=== PATIENT | male | born 1970 | race Caucasian/White ===

== ENCOUNTER 2019-10-15 11:47 | Emergency (ER) | payer BC ==
[2019-10-15 12:08] VITALS: BP 108/72; PULSE 70
--- NOTE | 2019-10-15 12:48 | EDM.PDOC ---
ED HPI GENERAL MEDICAL PROBLEM - General Chief Complaint: General Stated Complaint: PULLING IN ABDOMEN AREA Time Seen by Provider: 10/15/19 12:25 Source of Information: Reports: Patient, Significant Other History Limitations: Reports: No Limitations - History of Present Illness INITIAL COMMENTS - FREE TEXT/NARRATIVE: Patient presents with acute pain in right groin and right low back after lifting a heavy object about two hours ago. Immediately after the incident he developed a cold sweat. He checked oral temp at home which was 94 F but this was shortly after drinking some water. He has constipation chronically due to hydrocodone use for chronic back and neck pain. He also uses Cyclobenzaprine and Alprazolam to help relax at night. He says he sometimes has a similar pain from constipation but not as severe or acute. He was concerned that he had ruptured or obstructed a bowel with the lifting. He did pass stool and take a shower before coming to ER. Right Groin Pain Score (Numeric/FACES): 5 - Related Data Allergies Allergy/AdvReac Type Severity Reaction Status Date / Time egg Allergy Diarrhea Verified 10/15/19 12:10 No Known Drug Allergies Allergy Cannot Verified 08/20/14 21:48 Remember Home Meds: Home Meds ALPRAZolam [Alprazolam] 2 tab PO BEDTIME 10/15/19 [History] Cyclobenzaprine HCl 10 mg PO DAILY PRN 10/15/19 [History] Hydrocodone/Acetaminophen [Hydrocodon-Acetaminophn 10-325] 1 tab PO DAILY PRN [History] Levothyroxine 25 mcg PO DAILY 10/15/19 [History] Propranolol HCl 20 mg PO DAILY 10/15/19 [History] Past Medical History - Past Health History Medical/Surgical History: Denies Medical/Surgical History Other Cardiovascular History: Palpatations Social & Family History - Tobacco Use Smoking Status *Q: Current Every Day Smoker Years of Tobacco use: 35 Packs/Tins Daily: 1 Second Hand Smoke Exposure: Yes - Caffeine Use Caffeine Use: Reports: Other Other Caffeine Use: root beer x4 bottles daily - Recreational Drug Use Recreational Drug Use: No - Living Situation & Occupation Living situation: Reports: Occupation: Employed ED ROS GENERAL - Review of Systems Review Of Systems: See Below Constitutional: Reports: Chills. Denies: Fever, Malaise, Weakness HEENT: Denies: Vision Change Respiratory: Denies: Shortness of Breath, Cough Cardiovascular: Denies: Chest Pain, Lightheadedness, Syncope Endocrine: Reports: Other (Christine) GI/Abdominal: Reports: Constipation. Denies: Vomiting : Denies: Dysuria Musculoskeletal: Reports: Neck Pain (chronic only), Back Pain (see HPI). Denies : Shoulder Pain, Arm Pain, Leg Pain Skin: Denies: Cyanosis, Jaundice, Mottled, Pallor, Diaphoresis Neurological: Denies: Confusion, Dizziness, Headache, Seizure, Syncope, Trouble Speaking, Difficulty Walking Psychiatric: Reports: Anxiety. Denies: Agitation, Confusion ED EXAM, GENERAL - Physical Exam Exam: See Below Exam Limited By: No Limitations General Appearance: Alert, WD/WN, No Apparent Distress Eye Exam: Bilateral Eye: EOMI, Normal Inspection, PERRL Ears: Normal External Exam, Hearing Grossly Normal Nose: Normal Inspection, No Blood Throat/Mouth: Normal Inspection, Normal Lips, Normal Voice, No Airway Compromise Head: Atraumatic, Normocephalic Neck: Normal Inspection, Full Range of Motion Respiratory/Chest: No Respiratory Distress, Lungs Clear, Normal Breath Sounds, No Accessory Muscle Use Cardiovascular: Regular Rate, Rhythm, No Murmur GI/Abdominal: Normal Bowel Sounds, Soft, Non-Tender, No Organomegaly, No Distention, No Abnormal Bruit (Male) Exam: No Hernia, Normal Inspection. No: Penile Lesions, Rash, Scrotal Swelling, Scrotum Tenderness (L), Scrotum Tenderness (R), Suprapubic Fullness, Testicular Mass, Testicular Tenderness (L), Testicular Tenderness (R) , Urethral Discharge Back Exam: Muscle Spasm (right lumbar), Paraspinal Tenderness (right lumbar). No: Vertebral Tenderness Extremities: Normal Inspection, Normal Range of Motion Neurological: Alert, Oriented, Normal Cognition, No Motor/Sensory Deficits Psychiatric: Normal Affect, Normal Mood Skin Exam: Warm, Dry, Intact, Normal Color, No Rash Course - Vital Signs Last Recorded V/S: Last Vital Signs Temp 97.4 F 10/15/19 12:02 Pulse 70 10/15/19 12: Resp 21 H 10/15/19 12:02 BP 108/72 10/15/19 12:02 Pulse Ox 97 10/15/19 12:02 - Re-Assessments/Exams Free Text/Narrative Re-Assessment/Exam: 10/15/19 12:51 Discussed findings, treatment plan and expectations with patient and his . He says he is feeling much better already even since coming to ER. He is discharged to home in stable condition. Departure - Departure Time of Disposition: 12:40 Disposition: Home, Self-Care 01 Condition: Good Clinical Impression: Strain of muscle of right groin region Strain of lumbar paraspinal muscle Qualifiers: Encounter type: initial encounter Qualified Code(s): S39.012A - Strain of muscle, fascia and tendon of lower back, initial encounter - Discharge Information Instructions: Muscle Strain, [id number] Referrals: Bety Waller PA-C [Primary Care Provider] - Additional Instructions: 1. Drink 8 cups of water daily. 2. Avoid activities that aggravate your back or groin symptoms. 3. You can use your Ibuprofen and Cyclobenzaprine as directed for this as needed. 4. Follow up with your PCP if worsening or if not improving as expected. Sepsis Event Note - Evaluation Sepsis Screening Result: No Definite Risk - Focused Exam Vital Signs: Vital Signs Temp Pulse Resp BP Pulse Ox 10/15/19 12:02 97.4 F 70 21 H 108/72 97 Date Exam was Performed: 10/15/19 Time Exam was Performed: 12:40
== END 2019-10-15 12:54 | disposition home or self-care (01) ==
LOC: KA.ED 11:47
DX: S39.012A Strain of muscle, fascia and tendon of lower back, initial encounter (principal); S39.011A Strain of muscle, fascia and tendon of abdomen, initial encounter; F17.210 Nicotine dependence, cigarettes, uncomplicated; Z91.012 Allergy to eggs; X50.9XXA Other and unspecified overexertion or strenuous movements or postures, initial encounter
CPT/HCPCS: 82962; 99283

== ENCOUNTER 2020-05-04 14:41 | Emergency (ER) | payer BC ==
--- NOTE | 2020-05-04 14:57 | EDM.PDOC ---
ED HPI GENERAL MEDICAL PROBLEM - General Chief Complaint: Upper Extremity Injury/Pain Stated Complaint: INJURY TO HAND Time Seen by Provider: 05/04/20 14:57 Source of Information: Reports: Patient History Limitations: Reports: No Limitations - History of Present Illness INITIAL COMMENTS - FREE TEXT/NARRATIVE: Lucio, 49-year-old male, injured left fourth digit today with a crushing injury while moving a wood splitter. When moving wood splinter allowing to the ground with his hand on the hitch, the device dropped rapidly pinching between the hard ground and the steel hitch. Immediate pain with deformity to the distal phalange of the fourth digit. He immediately removed his ring, applied a compress tall and self spontaneously reduced the fracture for the most part. Bleeding was controlled upon his arrival. No other contributing factors are noted he is questionably due for tetanus diphtheria update. Used one of his prescribed hydrocodone APAP prior to arrival with slight discomfort noting a grating sensation to motion of the finger. 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: Other Medication(s) (Hydrocodone) - Related Data Allergies Allergy/AdvReac Type Severity Reaction Status Date / Time egg Allergy Diarrhea Verified 10/15/19 12:10 No Known Drug Allergies Allergy Cannot Verified 08/20/14 21:48 Remember Home Meds: Home Meds ALPRAZolam [Alprazolam] 2 tab PO BEDTIME 10/15/19 [History] Cyclobenzaprine HCl 10 mg PO DAILY PRN 10/15/19 [History] Hydrocodone/Acetaminophen [Hydrocodon-Acetaminophn 10-325] 1 tab PO DAILY PRN 10/15/19 [History] Levothyroxine 25 mcg PO DAILY 10/15/19 [History] Propranolol HCl 20 mg PO DAILY 10/15/19 [History] Tacrolimus [Protopic] 10/15/19 [History] rOPINIRole [Requip] 10/15/19 [History] valACYclovir [Valtrex] 10/15/19 [History] cephALEXin [Keflex] 500 mg PO TID 7 Days #21 capsule 05/04/20 [Rx] Past Medical History - Past Health History Medical/Surgical History: Denies Medical/Surgical History Other Cardiovascular History: Palpatations Musculoskeletal History: Reports: Other (See Below) (Numerous lacerations and injuries requiring greater than 200 sutures in his lifetime. No previous broken bones.) Social & Family History - Family History Family Medical History: Noncontributory - Caffeine Use Caffeine Use: Reports: Other Other Caffeine Use: root beer x4 bottles daily - Living Situation & Occupation Living situation: Reports: Occupation: Employed Review of Systems - Review of Systems Review Of Systems: See Below Constitutional: Reports: No Symptoms Eyes: Reports: No Symptoms Ears: Reports: No Symptoms Nose: Reports: No Symptoms Mouth/Throat: Reports: No Symptoms Respiratory: Reports: No Symptoms Cardiovascular: Reports: No Symptoms GI/Abdominal: Reports: No Symptoms Musculoskeletal: Reports: Joint Pain, Muscle Pain Skin: Reports: Wound Neurological: Reports: No Symptoms Psychiatric: Reports: No Symptoms ED EXAM, GENERAL - Physical Exam Exam: See Below Free Text/Narrative:: Alert oriented in minimal distress. HEENT is benign. Thorax clear no respiratory distress. Cardiac is regular. Radial pulses present with integument intact other than the distal medial aspect of the left fourth digit. Capillary refill is intact but limited motion to the digit secondary of discomfort and noted crepitus. Laceration 0.8 cm to the medial nailbed region with bleeding controlled. There is deformity to the distal finger. X-ray obtained showing fracture of the proximal end of the distal flanks with mild deviation laterally. No active bleeding at this time. Digital block is provided upon initial evaluation before any further treatment or assessment. ED TRAUMA EXTREMITY PROCEDURES - Laceration/Wound Repair Left Medial Distal Digit - 4th (Ring) Appearance: Superficial, Subcutaneous Distal NVT: Neuro & Vascular Intact, No Tendon Injury Anesthetic Type: Digital Local Anesthesia - Lidocaine (Xylocaine): 2% Plain Local Anesthetic Volume: 3cc Skin Prep: Providone-Iodine (Betadine) Exploration/Debridement/Repair: In a Bloodless Field, Minimal Debridement Closed With: Sutures Suture Size: 4-0 # of Sutures: 3 Suture Type: Nylon, Interrupted Sterile Dressing Applied: Nurse Tetanus Status Addressed: Yes Complications: No Course - Orders/Labs/Meds Orders: Active Orders 24 hr Category Date Time Status Vaccines to be Administered [RC] PER UNIT ROUTINE Care 05/04/20 16:00 Active Meds: Medications Discontinued Medications Generic Name Dose Route Start Last Admin Trade Name Freq PRN Reason Stop Dose Admin Bacitracin 1.7 gm 05/04/20 15:49 Bacitracin Oint TOP 05/04/20 15:50 ONETIME ONE Cephalexin 500 mg 05/04/20 15:57 Keflex 250 Mg/5 Ml Susp PO 05/04/20 15:58 ONETIME ONE Cephalexin 500 mg 05/04/20 16:09 05/04/20 16:12 Keflex PO 05/04/20 16:10 500 mg ONETIME ONE Administration Diphtheria/Tetanus/Acell Pertussis 0.5 ml 05/04/20 16:00 05/04/20 16:18 Adacel IM 05/04/20 16:01 0.5 ml .ONCE ONE Administration Lidocaine 5 ml 05/04/20 14:59 Xylocaine-Mpf 2% INJECT 05/04/20 15:00 ONETIME ONE Neomycin/Polymyxin/Bacitracin Confirm 05/04/20 15:53 Triple Antibiotic Oint Administered 05/04/20 15:54 Dose 1 [address] .[address] .[facility] ONE - Re-Assessments/Exams Free Text/Narrative Re-Assessment/Exam: 05/04/20 15:12 Digital block to web space Departure - Departure Time of Disposition: 15:56 Disposition: Home, Self-Care 01 Condition: Good Clinical Impression: Laceration Fracture, finger, distal phalanx, open Qualifiers: Encounter type: initial encounter Finger: ring finger Laterality: left Finger abrasion Qualifiers: Encounter type: initial encounter Qualified Code(s): S60.419A - Abrasion of unspecified finger, initial encounter - Discharge Information *PRESCRIPTION DRUG MONITORING PROGRAM REVIEWED*: Not Applicable *COPY OF PRESCRIPTION DRUG MONITORING REPORT IN PATIENT ONUR: Not Applicable Prescriptions: cephALEXin [Keflex] 500 mg PO TID 7 Days #21 capsule Instructions: Finger Fracture, Adult Referrals: Bety Waller PA-C [Primary Care Provider] - Forms: ED Department Discharge, ED Return to Work/School Form Additional Instructions: You have sustained a fracture to the distal phalange of your fourth finger, along with a laceration. We have sutured the laceration, and reduced the fingertip to anatomical alignment. You will need to see the clinic this upcoming week for reassessment/x-ray of the finger to assure that it is remaining within acceptable limits. Sutures need to be removed in roughly 10 days. You will be placed on antibiotics secondary of the laceration with the fracture. You will be given doses for today here and prescription sent to your pharmacy to picker tender tomorrow. Change the dressing if soiled and use the splint until reevaluation and treatment plan is reviewed. Ice, elevate, ibuprofen or Tylenol may be used as well as the hydrocodone that you have on hand. The digital block that was performed today will wear off in roughly an hour to 2 hours and you may experience some throbbing at that time. Call the clinic tomorrow to schedule an appointment for the mid to latter part of the week. Call or return to the emergency department this weekend as needed. - Problem List & Annotations (1) Finger abrasion SNOMED Code(s): 439267286 Code(s): S60.419A - ABRASION OF UNSPECIFIED FINGER, INITIAL ENCOUNTER Status: Acute Priority: High Current Visit: Yes Onset Date: ~05/04/20 Qualifiers: Encounter type: initial encounter Qualified Code(s): S60.419A - Abrasion of unspecified finger, initial encounter (2) Fracture, finger, distal phalanx, open SNOMED Code(s): 52331838 Code(s): S62.639B - DISP FX OF DISTAL PHALANX OF UNSP FINGER, INIT FOR OPN FX Status: Acute Priority: High Current Visit: Yes Qualifiers: Encounter type: initial encounter Finger: ring finger Laterality: left (3) Laceration SNOMED Code(s): 515837684 Code(s): WHT6873 - Status: Acute Priority: High Current Visit: Yes - Problem List Review Problem List Initiated/Reviewed/Updated: Yes - My Orders Last 24 Hours: My Active Orders 05/04/20 16:00 Vaccines to be Administered [RC] PER UNIT ROUTINE - Assessment/Plan Last 24 Hours: My Active Orders 05/04/20 16:00 Vaccines to be Administered [RC] PER UNIT ROUTINE Plan: You have sustained a fracture to the distal phalange of your fourth finger, along with a laceration. We have sutured the laceration, and reduced the fingertip to anatomical alignment. You will need to see the clinic this upcoming week for reassessment/x-ray of the finger to assure that it is remaining within acceptable limits. Sutures need to be removed in roughly 10 days. You will be placed on antibiotics secondary of the laceration with the fracture. You will be given doses for today here and prescription sent to your pharmacy to picker tender tomorrow. Change the dressing if soiled and use the splint until reevaluation and treatment plan is reviewed. Ice, elevate, ibuprofen or Tylenol may be used as well as the hydrocodone that you have on hand. The digital block that was performed today will wear off in roughly an hour to 2 hours and you may experience some throbbing at that time. Call the clinic tomorrow to schedule an appointment for the mid to latter part of the week. Call or return to the emergency department this weekend as needed.
[2020-05-04] MEDS ORDERED: Lidocaine 2% 5 ML SDV INJECT ONE (14:59)
[2020-05-04] MEDS ORDERED: Bacitracin/Neomycin/Polymyxin B Oint 0.9 GM U/D Packet TOP ONE (15:30)
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
[2020-05-04] MEDS ORDERED: Bacitracin Oint 30 GM Tube TOP ONE (15:49)
[2020-05-04] MEDS ORDERED: Bacitracin/Neomycin/Polymyxin B Oint 0.9 GM U/D Packet ONE (15:53)
[2020-05-04] MEDS ORDERED: Cephalexin 250 MG/5 ML Susp 100 ML Bottle PO ONE (15:57)
[2020-05-04] MEDS ORDERED: Diphtheria,Pertussis(Acell),Tetanus Vaccine 0.5 ML SDV IM ONE (16:00)
[2020-05-04] MEDS ORDERED: Cephalexin 250 MG Cap PO ONE (16:09)
[2020-05-04 18:47] VITALS: BP 112/74; PULSE 66
== END 2020-05-04 16:30 | disposition home or self-care (01) ==
LOC: KA.ED 14:41
DX: S62.635B Displaced fracture of distal phalanx of left ring finger, initial encounter for open fracture (principal); Z91.012 Allergy to eggs; Z23 Encounter for immunization; W23.0XXA Caught, crushed, jammed, or pinched between moving objects, initial encounter
CPT/HCPCS: 12001; 73140-F3; 90471; 90715; 99283; 99283-25; A9270-GY; J2001